=== PATIENT | male | born 1950 | race Caucasian/White ===

== ENCOUNTER → 2016-10-11 | Outpatient (CLI) | payer MEDICARE ==
--- NOTE | 2016-10-11 09:21 | RAD ---
EXAM DESCRIPTION: XR ANKLE 3 OR MORE VIEWS CLINICAL HISTORY: 66 y/o ,M, CLOSED FX OF DISTAL FIBULA COMPARISON: September 21, 2016 IMPRESSION: Significant reduction in the soft tissue swelling about the lateral right ankle. The obliquely oriented lateral malleolus fracture is again noted. Slight callus formation is noted on the AP radiograph. The ankle mortise is intact. No additional fractures noted. Syndesmosis is unremarkable. Electronically signed by: Asif Dean MD 10/11/2016 09:18
== END ==
LOC: RAD 08:00
PROVIDERS: ATTEND Orthopaedic Surgery
DX: S82.821A Torus fracture of lower end of right fibula, initial encounter for closed fracture (principal)

== ENCOUNTER → 2016-11-10 | Outpatient (CLI) | payer MEDICARE ==
--- NOTE | 2016-11-10 12:43 | RAD ---
EXAM DESCRIPTION: Right ankle series. CLINICAL HISTORY: Close fracture of the distal tibia. COMPARISON: October 11, 2016. TECHNIQUE: Three views were submitted for evaluation. FINDINGS: Obliquely oriented fracture through the distal fibular metaphysis. The ankle mortise is intact. The syndesmosis is not widened. Soft tissue swelling noted. No additional fracture. IMPRESSION: Lateral malleolus fracture. Subtle increased callus formation noted on today's study when compared to prior. No evidence of extension into the syndesmosis. Electronically signed by: Asif Dean MD 11/10/2016 12:41
== END | disposition home or self-care (01) ==
LOC: RAD 09:57
PROVIDERS: ATTEND Orthopaedic Surgery
DX: S82.812D Torus fracture of upper end of left fibula, subsequent encounter for fracture with routine healing (principal)

== ENCOUNTER → 2016-12-25 | Outpatient (CLI) | payer MEDICARE ==
--- NOTE | 2016-12-25 10:10 | RAD ---
EXAM DESCRIPTION: Ankle,Right 3 Views CLINICAL HISTORY: FX OF DISTAL FIB COMPARISON: 10 November 2016 TECHNIQUE: AP/lateral/oblique FINDINGS: Soft tissue swelling is observed about the ankle most pronounced laterally. A prior oblique fracture of the distal fibula is observed minimal callus formation is observed at the fracture site. No solid union is detected. No new injury is seen. The ankle mortise is intact. IMPRESSION: Oblique fracture of the distal fibula is observed with minimal callus. No solid union is yet evident Electronically signed by: Patrick Lopez MD 12/25/2016 10:09 AM CDT
== END | disposition home or self-care (01) ==
LOC: RAD 08:39
PROVIDERS: ATTEND Orthopaedic Surgery
DX: S82.821D Torus fracture of lower end of right fibula, subsequent encounter for fracture with routine healing (principal)

== ENCOUNTER → 2017-03-20 | Outpatient (CLI) | payer MEDICARE | END | disposition home or self-care (01) | LOC: YCFC.O 13:02 | PROVIDERS: ATTEND Anesthesiology Pain Medicine | DX: Z79.891 Long term (current) use of opiate analgesic (principal) ==

== ENCOUNTER → 2017-05-14 | Outpatient (CLI) | payer MEDICARE | END | disposition home or self-care (01) | LOC: GMAM 10:09 | PROVIDERS: ATTEND Family Medicine | DX: Z12.5 Encounter for screening for malignant neoplasm of prostate (principal); M10.00 Idiopathic gout, unspecified site; E55.9 Vitamin D deficiency, unspecified; R31.21 Asymptomatic microscopic hematuria | CPT/HCPCS: 82306; 84550; G0103 ==

== ENCOUNTER → 2017-05-23 | Outpatient (CLI) | payer MEDICARE ==
--- NOTE | 2017-05-24 08:11 | CT ---
EXAM DESCRIPTION: Chest w/Contrast (accession [id number]), Abdomen/Pelvis w/wo Contrast (accession [id number]) CLINICAL HISTORY: COUGH microhematuria COMPARISON: None. TECHNIQUE: Postcontrast CT images of the chest are obtained. Pre and postcontrast CT images of the abdomen and pelvis are also obtained. This exam was performed according to our departmental dose-optimization program, which includes automated exposure control, adjustment of the mA and/or kV according to patient size and/or use of iterative reconstruction technique . FINDINGS: CT chest: The heart is unremarkable. Moderate coronary artery calcifications are seen. Aneurysmal dilatation of the ascending thoracic aorta without dissection is seen. The aorta measures 4.7 cm. No pathologically enlarged mediastinal, hilar, or axillary lymphadenopathy is seen. Borderline right hilar lymph node measures 1.3 cm. No significant pleural or pericardial effusion is seen. Lungs are hyperinflated with increased AP diameter of the chest and moderate centrilobular emphysematous changes seen. Mild peripheral interstitial nodular changes in the lung bases seen bilaterally. There is a noncalcified 4 mm pulmonary nodule in the anterior left lower lobe on image 32. No obvious bronchiectasis is seen. There is some crowding of the bronchovascular markings in the lung bases limiting evaluation. There is a 4 mm probable intrapulmonary lymph node along the right oblique fissure on image 31. Osseous structures show no aggressive bony lesions. Mild disc degenerative changes of the spine are seen. CT abdomen pelvis: The liver, spleen, pancreas, and adrenal glands are unremarkable. There is a 5 mm calcified gallstone. No biliary tract obstruction or inflammatory changes are seen. Moderate atherosclerotic disease is seen. Aneurysmal dilatation of the distal infrarenal abdominal aorta is seen measuring 3.1 cm. 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 There is moderate associated mural thrombus. The opacified lumen of the right iliac artery is 1.2 cm in the left is 1.5 cm. Vascular stents are identified in the distal common iliac to proximal external iliac arteries with small external iliac arteries beyond that level. Kidneys show moderate vascular calcifications. 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 Kidneys and ureters are unremarkable. Urinary bladder is contracted and not well evaluated but fills with contrast on delayed images. Prostate is unremarkable. Contracted stomach, small bowel, appendix, and colon are unremarkable. No significant diverticular disease is seen. No pathologically enlarged abdominal or pelvic lymphadenopathy is seen. Small fat-containing left inguinal hernia is small fat-containing umbilical hernia seen. Osseous structures show moderate degenerative changes. Mild anterolisthesis at L3-4 and L4-5 is seen with significant facet arthropathy contributing to spinal canal stenosis and foraminal encroachment from L3 through S1. IMPRESSION: Ascending thoracic aortic aneurysm measures 4.7 cm. Consider yearly follow-up imaging. Moderate emphysematous changes to the lungs are seen. There are at least 2 noncalcified 6 mm pulmonary nodules. These are indeterminate. Follow-up imaging in one year is recommended to determine long-term stability. Distal infrarenal abdominal aortic aneurysm measures 3.1 cm. Recommend follow-up imaging every 3 years. 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 Recommend vascular consultation for this finding. 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 Cholelithiasis. No significant nephrolithiasis is seen. Other findings as described in body of the report. Electronically signed by: Tereso Ramírez MD 05/24/2017 8:10 AM CDT
== END | disposition home or self-care (01) ==
LOC: CT 08:23
PROVIDERS: ATTEND Family Medicine
DX: R31.21 Asymptomatic microscopic hematuria (principal); R05 Cough